=== PATIENT | female | born 1955 ===

== ENCOUNTER 2024-06-25 09:33 | Outpatient (AMB) | payer MEDICARE, SELFPAY ==
[2024-06-25 09:57] VITALS: BP 112/76; PULSE 76; RESP 19; TEMP 36.3; O2SAT 98; BMI 42.5
--- NOTE | 2024-06-25 09:57 | PD.ORTHCLVIS ---
Vital signs 06/25/24 09:57 Height 1.6 m Height Method Stated Weight 108.862 kg Weight Measurement Method Estimated by Patient BMI 42.5 BP 112/76 Blood Pressure Source Automatic Cuff Blood Pressure Location Left Upper Arm Position Sitting Respiration 19 Pulse 76 Pulse Source Monitor Temp 97.4 F Temp Source Temporal Artery Scan Pulse Oximetry (%) 98 Oxygen Delivery Method Room Air Nasal Cannula Med/Allergies Allergies & Medications Allergies No Known Allergies Allergy (Verified 06/25/24 09:59) Medication Reconciliation hydrocodone 10 mg-acetaminophen 325 mg tablet 1 tab PO QHS PRN 06/25/24 [History Confirmed 06/25/24] melatonin 3 mg capsule 3 mg PO HS PRN 06/25/24 [History Confirmed 06/25/24] midodrine 10 mg tablet 10 mg PO TID 06/25/24 [History Confirmed 06/25/24] pantoprazole 40 mg tablet,delayed release 40 mg PO QDAY 06/25/24 [History Confirmed 06/25/24] paroxetine HCl 30 mg tablet 30 mg PO QDAY 06/25/24 [History Confirmed 06/25/24] paroxetine HCl 30 mg tablet 30 mg PO QDAY 06/25/24 [History Confirmed 06/25/24] Subjective Visit Visit for: new patient and knee (RIGHT) Immunization / Flu Flu Vaccine in the Last 12 Months: Yes Flu Vaccine Exclusion Criteria: Already Received History of Present Illness Chief complaint: RIGHT KNEE PAIN Justine is a 61-year-old female who fell in a wheelchair at home 5 months ago. She had a recent heart attack and is on dialysis. She has many medical issues and is on home oxygen. She is unable to stand and is using a wheelchair. She is going to see a cement based materials pump tender. She has not had any conservative treatment with injections. She has no x-rays with her today. She is transported by her facility Personal History Occupation: RETIRED Pain Pain level (0-10): 8 Pain duration: CONSTANT Pain location: inside (medial) Pain quality: sharp, dull and aching Pain timing: night, increases with activity and stairs Associated signs & symptoms: weakness and stiffness Ambulatory data Ambulatory device: other (specify) (WHEELCHAIR) Treatments Improvement with previous injections: No Improvement with PT: No Improvement with NSAIDS: no Review of Systems Review of Systems: All systems negative unless otherwise noted in HPI. Exam Exam Patient is in no acute distress and is cooperative with the examination today. Breathing is nonlabored. Patient has a normal mood and affect. Bilateral extremities were evaluated and demonstrates sensation intact to light touch. Palpable pedal pulses are present. No significant edema is present. Bilateral hips were examined. The patient has no pain with log roll of the hips. Internal rotation to 30 degrees and external rotation to 30 degrees is painless. Negative FADIR. Left knee was examined today. The left knee is in reasonable alignment. Range of motion from 0-120 degrees. Knee is stable to varus and valgus as well as AP translation with <5mm. Patient has a negative McMurrays. There is no pain with patellofemoral compression and no crepitus noted. The knee is nontender to palpation. The right knee was also examined. The right knee is in [varus] alignment. Range of motion from [0-115] degrees. Knee is stable to varus and valgus as well as AP translation with <5mm. Patient has a [negative] McMurrays. There is [no] pain with patellofemoral compression and [no] crepitus noted. The knee is [tender] to palpation [medially]. Assessment and Plan Problem List (1) Degenerative arthritis of knee, bilateral: Status: Acute Plan: Patient is a 61-year-old female with right knee pain greater than left and bilateral knee arthritis. The patient has no x-rays today. She is likely nonoperative candidate given her recent heart attack and dialysis. We will see her back after her x-rays are done Advanced Care Planning Discussion Advance care planning discussed with:: patient Office Procedures GNS Level of Care Nursing/Assessment Patient Status: Initial/New Patient Nursing Assessment/Reassesment: Medication Reconciliation, Update PMH in EMR and Vital Signs Coordination of Care: Complex Care and Chronic Disease 1-5, Education Complex Pt/Fam, Consent,records obtained, informed consent, 1 Ins Authorization, Results/Orders obtained and Staff clarify orders New Patient Charge New Patient Point Assignment: 1109 New Patient Point Charge: ENVIRONMENTAL COMPLIANCE SPECIALIST Level 3 (1212-0214) Past Medical History Past Medical History Have you ever been diagnosed with any of the following: Cardiology Problems Hypercholesterolemia: Yes Hypertension: Yes Respiratory Problems Smoking: No Smoking Exposure: No Endocrine Problems Diabetes Mellitus Type 2: Yes
== END 2024-06-25 10:09 | disposition home or self-care (01) ==
PROVIDERS: PCP Internal Medicine; Referring Provider Internal Medicine; Supervising Provider Orthopaedic Surgery Adult Reconstructive Orthopaedic Surgery; Visit Provider Orthopaedic Surgery Adult Reconstructive Orthopaedic Surgery
DX: M17.0 Bilateral primary osteoarthritis of knee (principal); M25.562 Pain in left knee; M25.561 Pain in right knee; I10 Essential (primary) hypertension; E11.9 Type 2 diabetes mellitus without complications; E78.00 Pure hypercholesterolemia, unspecified; I25.2 Old myocardial infarction
CPT/HCPCS: 99203; G0463

== ENCOUNTER 2024-07-16 10:48 | Outpatient (AMB) | payer MEDICARE, SELFPAY ==
--- NOTE | 2024-07-16 10:57 | RHCORTHONT_ITS ---
Vital signs 07/16/24 10:59 Height 1.6 m Height Method Stated Weight 109.769 kg Weight Measurement Method Stated by Patient BMI 42.8 BP 140/76 H Blood Pressure Source Automatic Cuff Blood Pressure Location Right Upper Arm Position Sitting Respiration 19 Pulse 88 Pulse Source Monitor Temp 96.9 F Temp Source Temporal Artery Scan Pulse Oximetry (%) 98 Oxygen Delivery Method Room Air Nasal Cannula Med/Allergies Allergies & Medications Allergies No Known Allergies Allergy (Verified 07/16/24 11:01) Medication Reconciliation hydrocodone 10 mg-acetaminophen 325 mg tablet 1 tab PO QHS PRN 06/25/24 [History Confirmed 07/16/24] melatonin 3 mg capsule 3 mg PO HS PRN 06/25/24 [History Confirmed 07/16/24] midodrine 10 mg tablet 10 mg PO TID 06/25/24 [History Confirmed 07/16/24] pantoprazole 40 mg tablet,delayed release 40 mg PO QDAY 06/25/24 [History Confirmed 07/16/24] paroxetine HCl 30 mg tablet 30 mg PO QDAY 06/25/24 [History Confirmed 07/16/24] paroxetine HCl 30 mg tablet 30 mg PO QDAY 06/25/24 [History Confirmed 07/16/24] Exam Exam Patient is in no acute distress and is cooperative with the examination today. Breathing is nonlabored. Patient has a normal mood and affect. Bilateral extremities were evaluated and demonstrates sensation intact to light touch. Palpable pedal pulses are present. No significant edema is present. Bilateral hips were examined. The patient has no pain with log roll of the hips. Internal rotation to 30 degrees and external rotation to 30 degrees is painless. Negative FADIR. Left knee was examined today. The left knee is in reasonable alignment. Range of motion from 0-120 degrees. Knee is stable to varus and valgus as well as AP translation with <5mm. Patient has a negative McMurrays. There is no pain with patellofemoral compression and no crepitus noted. The knee is nontender to palpation. The right knee was also examined. The right knee is in [varus] alignment. Range of motion from [0-115] degrees. Knee is stable to varus and valgus as well as AP translation with <5mm. Patient has a [negative] McMurrays. There is [no] pain with patellofemoral compression and [no] crepitus noted. The knee is [tender] to palpation [medially]. X-rays demonstrate bilateral knee arthritis of significant severity Assessment and Plan Problem List (1) Degenerative arthritis of knee, bilateral: Status: Acute Plan: Patient is a 61-year-old female with right knee pain greater than left and bilateral knee arthritis. She is not a surgical candidate. Recommend knee cortisone injections as patient would like to proceed with conse rvative treatment at this time. The risks and benefits of the procedure were reviewed with the patient and patient gave verbal consent to continue with the procedure. Procedure: performed by Dr. Hyatt Using sterile technique the Bilateral knees were thoroughly prepped with alcohol, and approximately 1 cc of Kenalog 40 mg/mL and 4 cc of 1% lidocaine was injected into each knee without resistance into the medial tibial femoral joint space. The patient tolerated the procedure. Advanced Care Planning Discussion Advance care planning discussed with:: patient Office Procedures GNS Level of Care Nursing/Assessment Patient Status: Established Patient Nursing Assessment/Reassesment: Medication Reconciliation, Update PMH in EMR and Vital Signs Coordination of Care: Complex Care and Chronic Disease 1-5, Education Complex Pt/Fam, Consent,records obtained, informed consent, Results/Orders obtained and Staff clarify orders Established Patient Charge Established Patient Point Assignment: 95 Established Patient Point Charge: EP Level 3 (80-115) Surgical Proc/IM SQ injection Major Surgical Procedure: Yes (BILATERAL KNEE INJECTION) Medication Given Medication Given Medication Given: Yes Documented Dose Given: 8 Route: Infiitration Medication Given Medication Given Medication Given: Yes Documented Dose Given: 2 Route: Infiitration Office Meds Xylocaine 10 mg/mL (1 %) injection solution Performing Provider: Abe Hyatt MD Performing Location: [facility] Administered by: Abe Hyatt MD on 07/16/24 11:27 Dose Route Admin Location Dispensed Lot Number Expiration Date [facility] Braze Operator 40 mL Infiltration 40 mL [id number] [employer] triamcinolone acetonide 40 mg/mL suspension for injection Performing Provider: Abe Hyatt MD Performing Location: [facility] Administered by: Abe Hyatt MD on 07/16/24 11:27 Dose Route Admin Location Dispensed Lot Number Expiration Date [facility] Braze Operator 80 mg intra-articular 2 mL [id number] [employer] PARENTER[employer] [place] Intake Visit Data Collection New Patient or Established: Established Patient (seen at [facility] within 3 years) Reason for Visit:: F/U xrays Auto Body Mechanic Required: No PCP or OBGYN visit in last 3 months: Yes Hx Now: No Do You Feel Safe at Home: Yes Authorities Contacted: N/A Questionairres Past Medical History Past Medical History Have you ever been diagnosed with any of the following: Cardiology Problems Hypercholesterolemia: Yes Hypertension: Yes Respiratory Problems Smoking: No Smoking Exposure: No Endocrine Problems Diabetes Mellitus Type 2: Yes Subjective Visit Visit for: follow up visit, knee and x-rays Immunization / Flu Flu Vaccine in the Last 12 Months: Yes Flu Vaccine Exclusion Criteria: Already Received History of Present Illness Chief complaint: F/U xrays Patient is a 61-year-old female with bilateral knee pain. She is from a nursing facility and has significant medical comorbidities and is on a blood thinner and home oxygen. We discussed bilateral knee injections today. I was emailed a copy of her x-rays which demonstrate moderate to severe arthritis. Pain Pain level (0-10): 8 Pain duration: all day Pain location: inside (medial), outside (lateral), anterior and posterior Pain quality: sharp, dull, aching and shocking Pain timing: increases with activity Ambulatory data Ambulatory device: other (specify) (wheelchair) Treatments Improvement with previous injections: No Improvement with PT: No Improvement with NSAIDS: n/a Review of Systems Review of Systems: All systems negative unless otherwise noted in HPI.
[2024-07-16 10:59] VITALS: BP 140/76; PULSE 88; RESP 19; TEMP 36.1; O2SAT 98; BMI 42.8
== END 2024-07-16 11:25 | disposition home or self-care (01) ==
LOC: HODSRG 10:48
PROVIDERS: PCP Internal Medicine; Referring Provider Internal Medicine; Supervising Provider Orthopaedic Surgery Adult Reconstructive Orthopaedic Surgery; Visit Provider Orthopaedic Surgery Adult Reconstructive Orthopaedic Surgery
DX: M17.0 Bilateral primary osteoarthritis of knee (principal); I10 Essential (primary) hypertension; E11.9 Type 2 diabetes mellitus without complications
CPT/HCPCS: 20610; 99213; J3301; J3490; G0463

== ENCOUNTER 2024-12-12 15:21 | Outpatient (AMB) | payer MEDICARE, MEDICAID, SELFPAY ==
[2024-12-12 15:32] VITALS: BP 152/75; PULSE 61; RESP 17; TEMP 36.9; O2SAT 100; BMI 42.5
--- NOTE | 2024-12-12 15:32 | ORTHONT_ITS ---
Vital signs 12/12/24 15:32 Height 1.6 m Height Method Stated Weight 108.862 kg Weight Measurement Method Standing Scale BMI 42.5 BP 152/75 H Blood Pressure Source Automatic Cuff Blood Pressure Location Right Upper Arm Position Sitting Respiration 17 Pulse 61 Pulse Source Monitor Temp 98.4 F Temp Source Temporal Artery Scan Pulse Oximetry (%) 100 Oxygen Delivery Method Room Air Med/Allergies Allergies & Medications Allergies No Known Allergies Allergy (Verified 12/12/24 15:34) Medication Reconciliation hydrocodone 10 mg-acetaminophen 325 mg tablet 1 tab PO QHS PRN 06/25/24 [History Confirmed 12/12/24] melatonin 3 mg capsule 3 mg PO HS PRN 06/25/24 [History Confirmed 12/12/24] midodrine 10 mg tablet 10 mg PO TID 06/25/24 [History Confirmed 12/12/24] pantoprazole 40 mg tablet,delayed release 40 mg PO QDAY 06/25/24 [History Confirmed 12/12/24] paroxetine HCl 30 mg tablet 30 mg PO QDAY 06/25/24 [History Confirmed 12/12/24] paroxetine HCl 30 mg tablet 30 mg PO QDAY 06/25/24 [History Confirmed 12/12/24] Exam Exam Patient is in no acute distress and is cooperative with the examination today. Breathing is nonlabored. Patient has a normal mood and affect. Bilateral extremities were evaluated and demonstrates sensation intact to light touch. Palpable pedal pulses are present. No significant edema is present. Bilateral hips were examined. The patient has no pain with log roll of the hips. Internal rotation to 30 degrees and external rotation to 30 degrees is painless. Negative FADIR. Left knee was examined today. The left knee is in reasonable alignment. Range of motion from 0-120 degrees. Knee is stable to varus and valgus as well as AP translation with <5mm. Patient has a negative McMurrays. There is no pain with patellofemoral compression and no crepitus noted. The knee is nontender to palpation. The right knee was also examined. The right knee is in [varus] alignment. Range of motion from [0-115] degrees. Knee is stable to varus and valgus as well as AP translation with <5mm. Patient has a [negative] McMurrays. There is [no] pain with patellofemoral compression and [no] crepitus noted. The knee is [tender] to palpation [medially]. X-rays demonstrate bilateral knee arthritis of significant severity Assessment and Plan Problem List (1) Degenerative arthritis of knee, bilateral: Status: Acute Plan: Patient is a 61-year-old female with right knee pain greater than left and bilateral knee arthritis. She is not a surgical candidate. Recommend knee cortisone injections as patient would like to proceed with conservative treatment at this time. The risks and benefits of the procedure were reviewed with the patient and patient gave verbal consent to continue with the procedure. Procedure: performed by Dr. Hyatt Using sterile technique the Bilateral knees were thoroughly prepped with alcohol, and approximately 1 cc of Kenalog 40 mg/mL and 4 cc of 1% lidocaine was injected into each knee without resistance into the medial tibial femoral joint space. The patient tolerated the procedure. Advanced Care Planning Discussion Advance care planning discussed with:: patient Office Procedures GNS Level of Care Nursing/Assessment Patient Status: Established Patient Nursing Assessment/Reassesment: Medication Reconciliation, Update PMH in EMR and Vital Signs Coordination of Care: Complex Care and Chronic Disease 1-5, Education Complex Pt/Fam, Consent,records obtained, informed consent, Education Simp Pt/Fam, Results/Orders obtained and Staff clarify orders Established Patient Charge Established Patient Point Assignment: 110 Established Patient Point Charge: EP Level 3 (80-115) Surgical Proc/IM SQ injection Major Surgical Procedure: Yes (BILATERAL KNEE INJECTIONS ) Medication Given Medication Given Medication Given: Yes Documented Dose Given: 8 Route: Infiitration Medication Given Medication Given Medication Given: Yes Documented Dose Given: 2 Route: Infiitration Office Meds Xylocaine 10 mg/mL (1 %) injection solution Performing Provider: Abe Hyatt MD Performing Location: [facility] Administered by: Abe yHatt MD on 12/12/24 15:43 Dose Route Admin Location Dispensed Lot Number Expiration Date [facility] Medicare Coordinator 40 mL Infiltration 40 mL [id number] 02/29/28 84643-079-88 [facility] triamcinolone acetonide 40 mg/mL suspension for injection Performing Provider: Abe Hyatt MD Performing Location: [facility] Administered by: Abe Hyatt MD on 12/12/24 15:43 Dose Route Admin Location Dispensed Lot Number Expiration Date [facility] Medicare Coordinator 80 mg intra-articular KNEE 2 mL [id number] 06/30/26 7647-9641-31 TE [employer] PARENTERAL MA Intake Visit Data Collection New Patient or Established: Established Patient (seen at [facility] within 3 years) Reason for Visit:: FU XRAYS Seen by Clinical Staff ONLY (RN/MA): No Maintenance Service Dispatcher Required: No PCP or OBGYN visit in last 3 months: Yes Hx Now: No Do You Feel Safe at Home: Yes Authorities Contacted: N/A Questionairres Past Medical History Past Medical History Have you ever been diagnosed with any of the following: Cardiology Problems Hypercholesterolemia: Yes Hypertension: Yes Respiratory Problems Smoking: No Smoking Exposure: No Endocrine Problems Diabetes Mellitus Type 2: Yes Subjective Visit Visit for: follow up visit and knee Immunization / Flu Flu Vaccine in the Last 12 Months: Yes Flu Vaccine Exclusion Criteria: Already Received History of Present Illness Chief complaint: F/U xrays Patient is a 61-year-old female with bilateral knee pain. She is from a nursing facility and has significant medical comorbidities and is on a blood thinner and home oxygen. She has done well with cortisone injections in the past and Wants new ones today Personal History Red flag PMH: none Pain Pain level (0-10): 8 Pain duration: 11/2024 Pain location: anterior Pain quality: sharp Pain timing: night Associated signs & symptoms: stiffness Ambulatory data Ambulatory device: other (specify) (WHEELCHAIR ) Walking distance (minutes): 1 Treatments Number of previous injections: 2 Improvement with previous injections: Yes Number of Physical Therapy sessions: 5 (PATIENT DOES DAILY PHYSICAL THERAPY ) Improvement with PT: No Improvement with NSAIDS: n/a Review of Systems Review of Systems: All systems negative unless otherwise noted in HPI.
== END 2024-12-12 15:46 | disposition home or self-care (01) ==
LOC: HODSRG 15:21
PROVIDERS: PCP Internal Medicine; Referring Provider Internal Medicine; Supervising Provider Orthopaedic Surgery Adult Reconstructive Orthopaedic Surgery; Visit Provider Orthopaedic Surgery Adult Reconstructive Orthopaedic Surgery
DX: M17.0 Bilateral primary osteoarthritis of knee (principal); M25.562 Pain in left knee; M25.561 Pain in right knee; I10 Essential (primary) hypertension; E78.00 Pure hypercholesterolemia, unspecified; E11.9 Type 2 diabetes mellitus without complications
CPT/HCPCS: 20610; 99213; J3301; J3490; G0463

== ENCOUNTER 2025-04-03 11:08 | Outpatient (AMB) | payer MEDICARE, MEDICAID, SELFPAY ==
--- NOTE | 2025-04-03 11:32 | ORTHONT_ITS ---
Med/Allergies Allergies & Medications Allergies No Known Allergies Allergy (Verified 12/12/24 15:34) Exam Exam Patient is in no acute distress and is cooperative with the examination today. Breathing is nonlabored. Patient has a normal mood and affect. Bilateral extremities were evaluated and demonstrates sensation intact to light touch. Palpable pedal pulses are present. No significant edema is present. Bilateral hips were examined. The patient has no pain with log roll of the hips. Internal rotation to 30 degrees and external rotation to 30 degrees is painless. Negative FADIR. Left knee was examined today. The left knee is in reasonable alignment. Range of motion from 0-120 degrees. Knee is stable to varus and valgus as well as AP translation with <5mm. Patient has a negative McMurrays. There is no pain with patellofemoral compression and no crepitus noted. The knee is nontender to palpation. The right knee was also examined. The right knee is in [varus] alignment. Range of motion from [0-115] degrees. Knee is stable to varus and valgus as well as AP translation with <5mm. Patient has a [negative] McMurrays. There is [no] pain with patellofemoral compression and [no] crepitus noted. The knee is [tender] to palpation [medially]. X-rays demonstrate bilateral knee arthritis of significant severity Assessment and Plan Problem List (1) Degenerative arthritis of knee, bilateral: Status: Acute Plan: Patient is a 61-year-old female with right knee pain greater than left and b ilateral knee arthritis. She is not a surgical candidate. Recommend knee cortisone injection as patient would like to proceed with conservative treatment at this time. The risks and benefits of the procedure were reviewed with the patient and patient gave verbal consent to continue with the procedure. Procedure: performed by Dr. Hyatt Using sterile technique the left knee was thoroughly prepped with alcohol, and approximately 1 cc of Depo-Medrol 80mg/mL and 4 cc of 0.2% ropivacaine was injected without resistance into the medial tibial femoral joint space. The patient tolerated the procedure. Recommend knee cortisone injection as patient would like to proceed with conservative treatment at this time. The risks and benefits of the procedure were reviewed with the patient and patient gave verbal consent to continue with the procedure. Procedure: performed by Dr. Hyatt Using sterile technique the Right knee was thoroughly prepped with alcohol, and approximately 1 cc of Depo-Medrol 80mg/mL and 4 cc of 0.2% ropivacaine was injected without resistance into the medial tibial femoral joint space. The patient tolerated the procedure. Advanced Care Planning Discussion Advance care planning discussed with:: patient Questionairres Past Medical History Past Medical History Have you ever been diagnosed with any of the following: Cardiology Problems Hypercholesterolemia: Yes Hypertension: Yes Respiratory Problems Smoking: No Smoking Exposure: No Endocrine Problems Diabetes Mellitus Type 2: Yes Subjective Visit Visit for: follow up visit and knee Immunization / Flu Flu Vaccine in the Last 12 Months: Yes Flu Vaccine Exclusion Criteria: Already Received History of Present Illness Chief complaint: F/U xrays Patient is a 61-year-old female with bilateral knee pain. She is from a nursing facility and has significant medical comorbidities and is on a blood thinner and home oxygen. She has done well with cortisone injections in the past and Wants new ones today Personal History Red flag PMH: none Pain Pain level (0-10): 8 Pain duration: 11/2024 Pain location: anterior Pain quality: sharp Pain timing: night Associated signs & symptoms: stiffness Ambulatory data Ambulatory device: other (specify) (WHEELCHAIR ) Walking distance (minutes): 1 Treatments Number of previous injections: 2 Improvement with previous injections: Yes Number of Physical Therapy sessions: 5 (PATIENT DOES DAILY PHYSICAL THERAPY ) Improvement with PT: No Improvement with NSAIDS: n/a Review of Systems Review of Systems: All systems negative unless otherwise noted in HPI.
[2025-04-03 13:37] VITALS: BP 133/67; PULSE 61; RESP 19; TEMP 36.6; BMI 42.5
--- NOTE | 2025-04-03 16:17 | ORTHONT_ITS ---
Vital signs 04/03/25 13:37 Height 1.6 m Height Method Stated Weight 108.862 kg Weight Measurement Method Estimated by Patient BMI 42.5 BP 133/67 H Blood Pressure Source Automatic Cuff Blood Pressure Location Left Upper Arm Position Sitting Respiration 19 Pulse 61 Pulse Source Monitor Temp 97.8 F Temp Source Temporal Artery Scan Med/Allergies Allergies & Medications Allergies No Known Allergies Allergy (Verified 04/03/25 16:20) Medication Reconciliation hydrocodone 10 mg-acetaminophen 325 mg tablet 1 tab PO QHS PRN 06/25/24 [History Confirmed 04/03/25] melatonin 3 mg capsule 3 mg PO HS PRN 06/25/24 [History Confirmed 04/03/25] midodrine 10 mg tablet 10 mg PO TID 06/25/24 [History Confirmed 04/03/25] pantoprazole 40 mg tablet,delayed release 40 mg PO QDAY 06/25/24 [History Confirmed 04/03/25] paroxetine HCl 30 mg tablet 30 mg PO QDAY 06/25/24 [History Confirmed 04/03/25] paroxetine HCl 30 mg tablet 30 mg PO QDAY 06/25/24 [History Confirmed 04/03/25] Assessment and Plan Problem List (1) Degenerative arthritis of knee, bilateral: Status: Acute Advanced Care Planning Discussion Advance care planning discussed with:: patient Office Procedures GNS Level of Care Nursing/Assessment Patient Status: Established Patient Nursing Assessment/Reassesment: Medication Reconciliation, Update PMH in EMR and Vital Signs Coordination of Care: Complex Care and Chronic Disease 1-5, Education Complex Pt/Fam, Consent,records obtained, informed consent, Results/Orders obtained and Staff clarify orders Established Patient Charge Established Patient Point Assignment: 95 Established Patient Point Charge: EP Level 3 (80-115) Surgical Proc/IM SQ injection Major Surgical Procedure: Yes (BILATERAL KNEE INJECTION) Medication Given Medication Given Medication Given: Yes Documented Dose Given: 1 Route: Infiitration Medication Given Medication Given Medication Given: Yes Documented Dose Given: 1 Route: Infiitration Medication Given Medication Given Medication Given: Yes Documented Dose Given: 4 Route: Infiitration Medication Given Medication Given Medication Given: Yes Documented Dose Given: 4 Route: Infiitration Office Meds methylprednisolone acetate 80 mg/mL suspension for injection Performing Provider: Abe Hyatt MD Performing Location: [facility] Administered by: Abe Hyatt MD on 04/03/25 16:18 Dose Route Admin Location Dispensed Lot Number Expiration Date Pack age [facility] [place] Stencil Maker 80 mg intra-articular 1 mL methylprednisolone acetate 80 mg/mL suspension for injection Performing Provider: Abe Hyatt MD Performing Location: [facility] Administered by: Abe Hyatt MD on 04/03/25 16:18 Dose Route Admin Location Dispensed Lot Number Expiration Date Pack age ND ND Stencil Maker 80 mg intra-articular 1 mL [id number] 06/02/26 ropivacaine (PF) 2 mg/mL (0.2 %) injection solution Performing Provider: Abe Hyatt MD Performing Location: [facility] Administered by: Abe Hyatt MD on 04/03/25 16:18 Dose Route Admin Location Dispensed Lot Number Expiration Date Pack age ND ND Stencil Maker 20 mL Infiltration 20 mL ropivacaine (PF) 2 mg/mL (0.2 %) injection solution Performing Provider: bAe Hyatt MD Performing Location: [facility] Administered by: Abe Hyatt MD on 04/03/25 16:18 Dose Route Admin Location Dispensed Lot Number Expiration Date Pack age NDC NDC Stencil Maker 20 mL Infiltration 20 mL Questionairres Past Medical History Past Medical History Have you ever been diagnosed with any of the following: Cardiology Problems Hypercholesterolemia: Yes Hypertension: Yes Respiratory Problems Smoking: No Smoking Exposure: No Endocrine Problems Diabetes Mellitus Type 2: Yes Subjective Immunization / Flu Flu Vaccine in the Last 12 Months: Yes Flu Vaccine Exclusion Criteria: Already Received Review of Systems Review of Systems: All systems negative unless otherwise noted in HPI.
== END 2025-04-03 11:39 | disposition home or self-care (01) ==
LOC: HODSRG 11:08
PROVIDERS: PCP Internal Medicine; Referring Provider Internal Medicine; Supervising Provider Orthopaedic Surgery Adult Reconstructive Orthopaedic Surgery; Visit Provider Orthopaedic Surgery Adult Reconstructive Orthopaedic Surgery
DX: M17.0 Bilateral primary osteoarthritis of knee (principal); M25.561 Pain in right knee; E11.9 Type 2 diabetes mellitus without complications; Z99.81 Dependence on supplemental oxygen
CPT/HCPCS: 20610; 99213; J1010; J2795; G0463